=== PATIENT | female | born 1965 | race American Indian/Alaskan Native ===

== ENCOUNTER 2018-11-21 23:02 | Emergency (ER) | payer MEDICAID ==
[2018-11-21 23:07] VITALS: BP 138/83; PULSE 99; RESP 16; TEMP 99.3; O2SAT 99
[2018-11-21 23:42] VITALS: BMI 47.2
--- NOTE | 2018-11-22 03:09 | ED PDOC ---
HPI: General Adult Time Seen by Provider: 11/22/18 01:20 Chief Complaint (Nursing): Lower Extremity Problem/Injury Additional Complaint(s): 53 y/o female brought in by EMS requesting bed to sleep in. Patient states there were no beds available at the senior living and she would like to elevate her l egs. Denies acute physical or psychiatric complaints. Past Medical History Reviewed: Historical Data, Nursing Documentation, Vital Signs Vital Signs: Last Vital Signs Temp 99.3 F 11/21/18 23:06 Pulse 99 H 11/21/18 23:06 Resp 16 11/21/18 23:06 BP 138/83 11/21/18 23:06 Pulse Ox 99 11/21/18 23:06 - Medical History PMH: Arthritis, Diabetes, HIV, HTN, Hypercholesterolemia Denies: Chronic Kidney Disease - Surgical History Surgical History: Hernia Repair - Family History Family History: States: Unknown Family Hx - Immunization History Hx Tetanus Toxoid Vaccination: No Hx Influenza Vaccination: Yes Hx Pneumococcal Vaccination: No - Home Medications Home Medications: Ambulatory Orders Medication Instructions Recorded Acetaminophen [Tylenol 325mg tab] 650 mg PO Q4 #20 tab 08/21/18 Azithromycin [Zithromax] 500 mg PO DAILY #7 tablet 08/21/18 - Allergies Allergies/Adverse Reactions: Allergies Allergy/AdvReac Type Severity Reaction Status Date / Time grape Allergy ITCHING Verified 11/21/18 23:41 Penicillins Allergy SWELLING Verified 11/21/18 23:41 Review of Systems ROS Statement: Except As Marked, All Systems Reviewed And Found Negative Physical Exam - Reviewed Nursing Documentation Reviewed: Yes Vital Signs Reviewed: Yes - Physical Exam Appears: Positive for: Well, Non-toxic, No Acute Distress Head Exam: Positive for: ATRAUMATIC, NORMAL INSPECTION, NORMOCEPHALIC Cardiovascular/Chest: Positive for: Regular Rate, Rhythm Respiratory: Positive for: Normal Breath Sounds Extremity: Positive for: Normal ROM, Pedal Edema (bilateral). Negative for: Calf Tenderness Neurologic/Psych: Positive for: Alert, Oriented (x3) - ECG O2 Sat by Pulse Oximetry: 99 - Progress ED Course And Treament: -accucheck On re-eval, patient awake, ambulating at baseline. No acute complaints. Patient requires no further intervention in the ED and is stable for discharge at this time Disposition - Clinical Impression Clinical Impression: Malingering - Patient ED Disposition Is Patient to be Admitted: No Counseled Patient/Family Regarding: Studies Performed, Diagnosis, Need For Followup - Disposition Disposition: Routine/Home Disposition Time: 03:10 Condition: STABLE
== END 2018-11-22 05:56 | disposition home or self-care (01) ==
LOC: H.ER 23:02
DX: Z76.5 Malingerer [conscious simulation] (principal); E11.9 Type 2 diabetes mellitus without complications